=== PATIENT | female | born 1970 | race Caucasian/White ===

== ENCOUNTER 2016-06-29 08:35 | Emergency (ER) | payer SELFPAY ==
[~2016-06-29] VITALS: Ht 154.9 cm; Wt 64.5 kg
[2016-06-29 08:43] VITALS: BP 150/64
== END 2016-06-29 09:18 | disposition home or self-care (01) ==
LOC: ED 08:35
DX: T63.301A Toxic effect of unspecified spider venom, accidental (unintentional), initial encounter (principal); Y92.89 Other specified places as the place of occurrence of the external cause

== ENCOUNTER 2017-11-14 02:23 | Emergency (ER) | payer SELFPAY ==
[~2017-11-14] VITALS: Ht 154.9 cm; Wt 68.0 kg
[2017-11-14 02:29] VITALS: Ht 154.9 cm; Wt 68.0 kg
[2017-11-14 04:30] VITALS: BP 123/83
== END 2017-11-14 04:30 | disposition home or self-care (01) ==
LOC: ED 02:23
DX: K08.89 Other specified disorders of teeth and supporting structures (principal); F17.210 Nicotine dependence, cigarettes, uncomplicated
CPT/HCPCS: 99406

== ENCOUNTER 2018-07-01 00:36 | Emergency (ER) | payer SELFPAY ==
[~2018-07-01] VITALS: Ht 154.9 cm; Wt 73.0 kg
[2018-07-01 01:05] VITALS: BP 115/85; Ht 154.9 cm; Wt 73.0 kg
== END 2018-07-01 02:16 | disposition home or self-care (01) ==
LOC: ED 00:36
DX: R05 Cough (principal); R06.02 Shortness of breath; J02.9 Acute pharyngitis, unspecified

== ENCOUNTER 2018-12-10 22:07 | Emergency (ER) | payer SELFPAY ==
[~2018-12-10] VITALS: Ht 157.5 cm; Wt 72.6 kg
[2018-12-10 23:15] VITALS: BP 121/86
== END 2018-12-10 23:15 | disposition home or self-care (01) ==
LOC: ED 22:07
DX: J06.9 Acute upper respiratory infection, unspecified (principal)

== ENCOUNTER 2020-05-09 19:08 | Emergency (ER) | payer SELFPAY ==
[~2020-05-09] VITALS: Ht 154.9 cm; Wt 71.2 kg
[2020-05-09 19:31] VITALS: BP 108/72; Ht 154.9 cm; Wt 71.2 kg
== END 2020-05-09 20:38 | disposition left against medical advice (07) ==
LOC: ED 19:08
DX: Z53.21 Procedure and treatment not carried out due to patient leaving prior to being seen by health care provider (principal)